=== PATIENT | female | born 1990 | race African-American/Black ===

== ENCOUNTER 2024-01-25 01:11 | Emergency (ER) | payer MEDICAID ==
[~2024-01-25] VITALS: Ht 170.2 cm; Wt 100.0 kg
[2024-01-25 01:22] VITALS: O2SAT 98
[2024-01-25] MEDS: SODIUM CHLORIDE 0.9% 1,000 ML IV ONE (02:12)
[2024-01-25 04:30] LABS: HEMATOCRIT. 37.2 % (36.0-48.0); HEMOGLOBIN. 11.9 g/dL (12.0-16.0); MEAN CORPUSCULAR HEMOGLOBIN 22.4 pg (28.0-32.0); MEAN CORPUSCULAR HGB CONC 31.9 g/dL (31.0-37.0); MEAN CORPUSCULAR VOLUME 70.2 fL (81.0-99.0); MEAN PLATELET VOLUME 7.4 fl (7.4-10.4); PLATELET 266 x1000/uL (130-400); WHITE BLOOD COUNT 12.9 x1000/uL (4.5-11.0)
[2024-01-25 04:50] LABS: DIFFERENTIAL COMMENT 1
[2024-01-25 04:52] LABS: HCG SCREEN NEGATIVE
[2024-01-25 04:58] LABS: CHLORIDE 103 mEq/L (98-107); SODIUM 137 mEq/L (136-145)
[2024-01-25 04:59] LABS: CALCIUM 8.7 mg/dL (8.7-10.4); CARBON DIOXIDE 24 mEq/L (21-32)
[2024-01-25 05:04] LABS: CREATININE 0.8 mg/dL (0.6-1.0); GLUCOSE 119 mg/dL (70-105); UREA NITROGEN BLOOD 11 mg/dL (9-23)
[2024-01-25 05:06] LABS: ALANINE AMINOTRANSFERASE 17 IU/L (10-49); ALBUMIN 3.9 g/dL (3.2-4.8); ASPARTATE AMINOTRANSFERASE 18 IU/L (<34); BILIRUBIN TOTAL 0.9 mg/dL (0.1-1.0)
[2024-01-25 05:48] LABS: HYPOCHROMASIA 1+; MICROCYTOSIS 1+; PLATELET ESTIMATE NORMAL
[2024-01-25] MEDS: ACETAMINOPHEN 325MG TABLET PO ONE (06:36)
[2024-01-25] MEDS: KETOROLAC 30MG/ML VIAL IV ONE (07:59)
[2024-01-25 09:35] VITALS: BP 136/79; PULSE 91; RESP 18; TEMP 98.3
== END 2024-01-25 09:28 | disposition home or self-care (01) ==
LOC: ER 01:11
DX: R10.9 Unspecified abdominal pain (principal)
CPT/HCPCS: 80053; 84703; 85025; 36415; 74176; 76700; 96360; 96361; 99284; J7030; Z7610 ×2